=== PATIENT | male | born 1985 | race Caucasian/White ===

== ENCOUNTER → 2022-11-02 | Outpatient (CLI) | payer BC | LOC: WOUNDCARE 13:15 | PROVIDERS: ATTEND Family Medicine | DX: T24.231A Burn of second degree of right lower leg, initial encounter (principal); T31.0 Burns involving less than 10% of body surface; X08.8XXA Exposure to other specified smoke, fire and flames, initial encounter | CPT/HCPCS: 99202 ==

== ENCOUNTER → 2022-11-09 | Outpatient (CLI) | payer BC | LOC: WOUNDCARE 08:10 | PROVIDERS: ATTEND Family Medicine | DX: T24.231A Burn of second degree of right lower leg, initial encounter (principal); T31.0 Burns involving less than 10% of body surface; X08.8XXA Exposure to other specified smoke, fire and flames, initial encounter | CPT/HCPCS: 99212 ==